=== PATIENT | male | born 1995 | race Caucasian/White ===

== ENCOUNTER 2016-09-14 13:07 | Emergency (ER) | payer OTHER ==
[~2016-09-14] VITALS: Ht 165.1 cm; Wt 73.1 kg
[2016-09-14 13:12] VITALS: TEMP 36.9; Ht 165.1 cm; Wt 73.1 kg
--- NOTE | 2016-09-14 13:28 | EMERGENCY ROOM VISIT NOTE ---
History Report prepared by Bimal: Jarek Dickey Under the Supervision of: Dr. Yamila Giron D.O. First contact with patient: 13:15 Chief Complaint: SEIZURE Stated Complaint: SEIZURE Nursing Triage Summary: Pt arrives ALS from class classmates report pt was working at his desk with he fell forward striking face. They report pt was shaking. Pt was apparently post ictal when police arrived on scene unknown how long this lasted Pt with mutliple abrasion on face petichial rash noted to upper chest, neck, and around eyes Pt reports he did not notice this rash this morning Pt denies any seizure hx History of Present Illness The patient is a 21 year old male who presents to the Emergency Room via ALS with complaints of seizure episode that occurred prior to arrival today. The patient was in class working at his desk on a homework assignment in lab, when he fell forward, striking his face. The patient's classmates report that the patient was shaking. Per the nursing report, the patient was post-ictal when EMS arrived on scene. It is unknown how long the episode lasted. Per the patient , he felt fine this morning without a fever. He did not eat breakfast but this is normal for him. He remembers being in lab doing homework, but does not remember much else. The patient reports that he does remember EMS walking in, and he was sitting in his chair at that time. He did recognize where he was. The patient has multiple abrasions on his face, and he reports that he has lip pain. The patient says he feels fine otherwise, and denies tongue soreness, dizziness, nausea, double vision, or shortness of breath. He did not urinate on himself during the episode. It was noted that the patient has a rash on his upper chest, neck, and around eyes, but the patient did not notice this rash this morning. He has never had his blood sugar drop before. He does not take any daily medications. The patient does not drink alcohol or smoke cigarettes. He denies any seizure history or family history of seizures. Source of History: patient, EMS, nursing staff Onset: Prior to arrival today Position: other (global - seizure ) Timing: other (episode) Associated Symptoms: + rash, No SOB, No fevers, No nausea, No urinary symptoms Note: Associated symptoms: Patient fell forward, striking face and has multiple abrasions on face from that. Complains of lip pain. Was shaking during episode. Denies tongue soreness, dizziness, double vision. Review of Systems See HPI for pertinent positives & negatives. A total of 10 systems reviewed and were otherwise negative. Past Medical & Surgical Medical Problems: (1) No chronic problems Family History No pertinent family history Social History Smoking Status: Never Smoker Smokeless Tobacco Use: No Alcohol Use: none Drug Use: marijuana Marital Status: single Housing Status: lives with roommate Occupation Status: [employer] student Current/Historical Medications No Active Prescriptions or Reported Meds Allergies Coded Allergies: Penicillins (Unverified Allergy, Severe, HIVES, 09/14/16) Physical Exam Vital Signs Date Time Temp Pulse Resp B/P Pulse Ox O2 Delivery O2 Flow Rate FiO2 09/14/16 17:16 82 18 156/97 96 Room Air 09/14/16 15:33 87 09/14/16 14:52 88 18 161/92 96 Room Air 09/14/16 13:31 96 Room Air 09/14/16 13:18 86 09/14/16 13:12 36.9 89 20 173/110 95 Room Air Physical Exam GENERAL: alert, well appearing, well nourished, no distress, non-toxic EYE EXAM: normal conjunctiva, PERRL and EOM's grossly intact, no nystagmus. OROPHARYNX: Abrasion underneath right nary and along right zygomatic arch. No intraoral trauma, no bruising to tongue. NECK: supple, no nuchal rigidity, no adenopathy, non-tender LUNGS: Clear to auscultation. Normal chest wall mechanics HEART: no murmurs, S1 normal and S2 normal ABDOMEN: abdomen soft, non-tender, normo-active bowel sounds, no masses, no rebound or guarding. BACK: Back is symmetrical on inspection and there is no deformity, no midline tenderness, no CVA tenderness. SKIN: mild appearance of petechiae across upper chest, neck, and face UPPER EXTREMITIES: upper extremities are grossly normal. LOWER EXTREMITIES: No pitting edema. NEURO EXAM: Normal sensorium, cranial nerves II-XII grossly intact, normal speech, no gross weakness of arms, no gross weakness of legs. No drift. Finger to nose intact. Gross sensation intact. Medical Decision & Procedures ER Provider Diagnostic Interpretation: Xray results per the radiologist and my interpretation. Other results have been interpreted by the radiologist and reviewed by me. CT HEAD WITHOUT CONTRAST (CT) CLINICAL HISTORY: seizure HEAD TRAUMA COMPARISON STUDY: No previous studies for comparison. TECHNIQUE: Axial CT of the brain is performed from the vertex to the skull base. IV contrast was not administered for this examination. CT DOSE: 537.48 mGy.cm FINDINGS: No intra or extra-axial mass lesions are visualized. There is no CT evidence of acute cortical infarction. There is no evidence of midline shift. There is no acute hemorrhage. No calvarial fractures are visualized. There is no evidence of pathologic ventricular dilatation. There is no evidence of acute sinusitis IMPRESSION: Normal noncontrast head CT. Electronically signed by: Juanjose Caraballo M.D. 09/14/2016 2:31 PM Dictated Date/Time: 09/14/2016 2:30 PM CHEST ONE VIEW PORTABLE CLINICAL HISTORY: seizure COMPARISON STUDY: No previous studies for comparison. FINDINGS: The cardiac and mediastinal contours are normal. There is no evidence of focal pulmonary consolidation. There is no evidence of failure. No pleural effusions are visualized.[ IMPRESSION: No active disease in the chest. Electronically signed by: Juanjose Caraballo M.D. 09/14/2016 1:58 PM Dictated Date/Time: 09/14/2016 1:58 PM Laboratory Results 09/14/16 14:10 Red Blood Count 5.36, Mean Corpuscular Volume 81.2, Mean Corpuscular Hemoglobin 29.3, Mean Corpuscular Hemoglobin Concent 36.1, Mean Platelet Volume 9.2, Neutrophils (%) (Auto) 89.8, Lymphocytes (%) (Auto) 6.6, Monocytes (%) (Auto) 2.9, Eosinophils (%) (Auto) 0.1, Basophils (%) (Auto) 0.2, Neutrophils # (Auto) 8.60, Lymphocytes # (Auto) 0.63, Monocytes # (Auto) 0.28, Eosinophils # (Auto) 0.01, Basophils # (Auto) 0.02 09/14/16 14:10 Test 09/14/16 13:38 09/14/16 13:40 09/14/16 14:10 Bedside Glucose 156 mg/dl (70-99) Urine Color YELLOW Urine Appearance CLEAR (CLEAR) Urine pH 6.0 (4.5-7.5) Urine Specific [place] 1.019 (1.000-1.030) Urine Protein 1+ (NEG) Urine Glucose (UA) NEG (NEG) Urine Ketones TRACE (NEG) Urine Occult Blood 1+ (NEG) Urine Nitrite NEG (NEG) Urine Bilirubin NEG (NEG) Urine Urobilinogen NEG (NEG) Urine Leukocyte Esterase TRACE (NEG) Urine WBC (Auto) 5-10 /hpf (0-5) Urine RBC (Auto) 0-4 /hpf (0-4) Urine Hyaline Casts (Auto) 10-30 /lpf (0-5) Urine Epithelial Cells (Auto) >30 /lpf (0-5) Urine Bacteria (Auto) NEG (NEG) Urine Opiates Screen NEG (NEG) Urine Methadone, Qualitative NEG (NEG) Urine Barbiturates NEG (NEG) Urine Phencyclidine (PCP) Level NEG (NEG) Ur Amphetamine/Methamphetamine NEG (NEG) MDMA (Ecstasy) Screen NEG (NEG) Urine Benzodiazepines Screen POS (NEG) Urine Cocaine Metabolite NEG (NEG) Urine Marijuana (THC) POS (NEG) White Blood Count 9.58 K/uL (4.8-10.8) Red Blood Count 5.36 M/uL (4.7-6.1) Hemoglobin 15.7 g/dL (14.0-18.0) Hematocrit 43.5 % (42-52) Mean Corpuscular Volume 81.2 fL (80-100) Mean Corpuscular Hemoglobin 29.3 pg (25-34) Mean Corpuscular Hemoglobin Concent 36.1 g/dl (32-36) Platelet Count 259 K/uL (130-400) Mean Platelet Volume 9.2 fL (7.4-10.4) Neutrophils (%) (Auto) 89.8 % Lymphocytes (%) (Auto) 6.6 % Monocytes (%) (Auto) 2.9 % Eosinophils (%) (Auto) 0.1 % Basophils (%) (Auto) 0.2 % Neutrophils # (Auto) 8.60 K/uL (1.4-6.5) Lymphocytes # (Auto) 0.63 K/uL (1.2-3.4) Monocytes # (Auto) 0.28 K/uL (0.11-0.59) Eosinophils # (Auto) 0.01 K/uL (0-0.5) Basophils # (Auto) 0.02 K/uL (0-0.2) RDW Standard Deviation 38.2 fL (36.4-46.3) RDW Coefficient of Variation 12.9 % (11.5-14.5) Immature Granulocyte % (Auto) 0.4 % Immature Granulocyte # (Auto) 0.04 K/uL (0.00-0.02) Anion Gap 8.0 mmol/L (3-11) Est Creatinine Clear Calc Drug Dose 93.2 ml/min Estimated GFR () 111.4 Estimated GFR (Non- 96.1 BUN/Creatinine Ratio 6.7 (10-20) Calcium Level 9.0 mg/dl (8.5-10.1) Phosphorus Level 1.6 mg/dl (2.5-4.9) Magnesium Level 2.2 mg/dl (1.8-2.4) Total Bilirubin 1.0 mg/dl (0.2-1) Aspartate Amino Transf (AST/SGOT) 19 U/L (15-37) Alanine Aminotransferase (ALT/SGPT) 30 U/L (12-78) Alkaline Phosphatase 67 U/L (45-117) Total Protein 7.7 gm/dl (6.4-8.2) Albumin 4.4 gm/dl (3.4-5.0) Globulin 3.3 gm/dl (2.5-4.0) Albumin/Globulin Ratio 1.3 (0.9-2) Thyroid Stimulating Hormone (TSH) 0.803 uIu/ml (0.300-4.500) Ethyl Alcohol mg/dL < 3.0 mg/dl (0-3) Laboratory results per my review. Medications Administered Medications (Trade) Dose Ordered Sig/Eloise Route Start Time Stop Time Status Last Admin Dose Admin Sodium Chloride (Nss 1000ml) 1,000 ml @ 999 mls/hr Q1H1M STAT IV 09/14/16 14:38 09/14/16 15:38 DC 09/14/16 14:50 999 MLS/HR ECG Indication: other (seizure) Rate (beats per minute): 74 Rhythm: normal sinus Findings: no acute ischemic change, other (normal axis, normal intervals) ED Course 1317: The patient was evaluated in room B7. A complete history and physical exam was performed. 1438: Ordered NSS 1000 ml @ 999 mls/hr IV. 1555: I reevaluated the patient and he feels fine with no complaints. I updated him on the results. He wants to eat. He also told me that he last used marijuana a week ago. 6: I discussed the patient with Dr. Beata MANUEL neurology - she says that if the patient is still around he can follow up with her, but if the patient is going home after finals week, he needs to follow up with neurology at home. 1658: I reevaluated the patient and updated him on the treatment plan. The patient verbally expressed understanding and agreement of the treatment plan. The patient will be discharged. Medical Decision Differential diagnosis includes etiologies such as infection, hypoglycemia, electrolyte abnormalities, cardiac sources, intracerebral event, trauma, toxicologic, neurologic, as well as others were entertained. Patient with no recurrent seizure activity here, had resumed to neurologic baseline, had a nonfocal and reassuring neurologic exam, negative labs and imaging. Patient with occasional marijuana use, however none more recently and no suspicion for additional substance in his usual marijuana. Discussed with patient will differential diagnosis, risks associated with new onset seizure, need for close follow-up as an outpatient. Paperwork filled out regarding patient's license and patient instructed not to drive. Discussed with patient staying with friends and family at all times in case he would have recurrent seizure. Discussed symptoms to watch return to the emergency room for. He verbalized understanding of all this was agreeable with plan. Doubt meningitis/ encephalitis, no evidence of mass or tumor, no evidence of intracranial hemorrhage, and no secondary trauma related to seizure today. Consults Time Called: 163 Consulting Physician: Dr. Beata MANUEL neurology Returned Call: [phone] I discussed the patient with Dr. Beata MANUEL neurology - she says that if the patient is still around he can follow up with her, but if the patient is going home after finals week, he needs to follow up with neurology at home. Impression Primary Impression: Seizure Scribe Attestation The scribe's documentation has been prepared under my direction and personally reviewed by me in its entirety. I confirm that the note above accurately reflects all work, treatment, procedures, and medical decision making performed by me. Departure Information Dispostion Home / Self-Care Prescriptions No Active Prescriptions or Reported Meds Referrals No Doctor, Assigned (PCP) Linsey Martinez D.O. Patient Instructions [facility] Additional Instructions Please do not drive until otherwise seen and evaluated by neurology. Please do not drink alcohol or use any recreational drugs. Please stay with friends or family at all time in case of another seizure. Please drink plenty of water, he may eat normally. Please do not engage in any strenuous activity until you' re seen and evaluated by neurology. If you develop any headaches, dizziness, vision changes, fevers or chills, vomiting, trouble breathing, chest pain, however recurrent seizure, develop numbness or tingling, or develop other new concerns, please return to emergency room.
[2016-09-14 13:31] VITALS: O2SAT 96
--- NOTE | 2016-09-14 14:00 | DIAGNOSTIC IMAGING REPORT ---
CHEST ONE VIEW PORTABLE CLINICAL HISTORY: seizure COMPARISON STUDY: No previous studies for comparison. FINDINGS: The cardiac and mediastinal contours are normal. There is no evidence of focal pulmonary consolidation. There is no evidence of failure. No pleural effusions are visualized.[ IMPRESSION: No active disease in the chest. Electronically signed by: Juanjose Caraballo M.D. 09/14/2016 1:58 PM Dictated Date/Time: 09/14/2016 1:58 PM
[2016-09-14 14:06] LABS: URINE APPEARANCE CLEAR (CLEAR); URINE BILIRUBIN NEG (NEG); URINE COLOR YELLOW; URINE EPITHELIAL CELL AUTO >30 /lpf (0-5); URINE NITRITE NEG (NEG); URINE SPECIFIC GRAVITY 1.019 (1.000-1.030); UROBILINOGEN NEG (NEG)
[2016-09-14 14:07] LABS: MANUAL MICROSCOPIC REQUIRED? NO; REVIEW REQ? NO
[2016-09-14 14:21] LABS: BASO % 0.2 %; BASO ABS # 0.02 K/uL (0-0.2); COMPLETE YES; EOS % 0.1 %; HEMATOCRIT 43.5 % (42-52); IG% 0.4 %; LYMPH % 6.6 %; LYMPH ABS # 0.63 K/uL (1.2-3.4); MEAN CELL VOLUME 81.2 fL (80-100); MEAN CORPUSCULAR HEMOGLOBIN 29.3 pg (25-34); MEAN CORPUSCULAR HGB CONC 36.1 g/dl (32-36); MEAN PLATELET VOLUME 9.2 fL (7.4-10.4); MONO % 2.9 %; NEUT % 89.8 %; PLATELET COUNT 259 K/uL (130-400); RED BLOOD COUNT 5.36 M/uL (4.7-6.1); WHITE BLOOD COUNT 9.58 K/uL (4.8-10.8)
[2016-09-14 14:30] LABS: BENZODIAZEPINE, URINE POS (NEG); COCAINE,URINE NEG (NEG); PHENCYCLIDINE, URINE NEG (NEG)
--- NOTE | 2016-09-14 14:32 | DIAGNOSTIC IMAGING REPORT ---
CT HEAD WITHOUT CONTRAST (CT) CLINICAL HISTORY: seizure HEAD TRAUMA COMPARISON STUDY: No previous studies for comparison. TECHNIQUE: Axial CT of the brain is performed from the vertex to the skull base. IV contrast was not administered for this examination. CT DOSE: 537.48 mGy.cm FINDINGS: No intra or extra-axial mass lesions are visualized. There is no CT evidence of acute cortical infarction. There is no evidence of midline shift. There is no acute hemorrhage. No calvarial fractures are visualized. There is no evidence of pathologic ventricular dilatation. There is no evidence of acute sinusitis IMPRESSION: Normal noncontrast head CT. Electronically signed by: Juanjose Caraballo M.D. 09/14/2016 2:31 PM Dictated Date/Time: 09/14/2016 2:30 PM
[2016-09-14] MEDS ORDERED: SODIUM CHLORIDE 0.9% 1000ML 1,000 ML IV STA (14:38)
[2016-09-14 14:46] LABS: BUN/CREATININE RATIO 6.7 (10-20); CREATININE 1.1 mg/dl (0.60-1.40); MAGNESIUM 2.2 mg/dl (1.8-2.4); POTASSIUM 3.5 mmol/L (3.5-5.1)
[2016-09-14 15:06] LABS: ALB/GLOB RATIO 1.3 (0.9-2); PHOSPHORUS 1.6 mg/dl (2.5-4.9); THYROID STIMULATING HORMONE 0.803 uIu/ml (0.300-4.500)
[2016-09-14 17:16] VITALS: BP 156/97; PULSE 82; O2SAT 96
[2016-09-17 14:25] LABS: HYDROXYETHYLFLURAZEPAM CONF NEGATIVE NG/ML (CUTOFF=50); HYDROXYMIDAZOLAM NEGATIVE NG/ML (CUTOFF=50); HYDROXYTRIAZOLAM CONF NEGATIVE NG/ML (CUTOFF=50); TEMAZEPAM CONF NEGATIVE NG/ML (CUTOFF=50)
== END 2016-09-14 17:17 | disposition home or self-care (01) ==
LOC: EDBD 13:07 → C.EDB 13:08
DX: R56.9 Unspecified convulsions (principal); S00.81XA Abrasion of other part of head, initial encounter; W22.09XA Striking against other stationary object, initial encounter; Y93.89 Activity, other specified; F12.10 Cannabis abuse, uncomplicated; Y92.89 Other specified places as the place of occurrence of the external cause